=== PATIENT | male | born 1995 | race Caucasian/White ===

== ENCOUNTER 2022-10-08 09:23 | Emergency (ER) | payer OTHER ==
[2022-10-08 09:32] VITALS: BP 105/73; PULSE 115; RESP 18; TEMP 99.3; BMI 23.1
[2022-10-08] MEDS ORDERED: IBUPROFEN 600 MG TABLET (FP) PO ONE (10:32)
== END 2022-10-08 12:00 | disposition home or self-care (01) ==
LOC: JER 09:23
DX: U07.1 COVID-19 (principal)
CPT/HCPCS: 0241U-QW; 87651; 99283-25